=== PATIENT | male | born 1975 | race Caucasian/White ===

== ENCOUNTER 2017-11-09 05:10 | Emergency (ER) | payer OTHER ==
--- NOTE | 2017-11-09 06:22 | RADIOLOGY REPORT (SQ) ---
EXAM DESCRIPTION: HAND RIGHT 3 VIEWS COMPLETED DATE/TIME: 11/09/2017 5:54 am REASON FOR STUDY: injury . Would fell from roof and hit hand. COMPARISON: None. EXAM PARAMETERS: NUMBER OF VIEWS: Three views. TECHNIQUE: AP, lateral and oblique radiographic images acquired of the right hand. LIMITATIONS: None. FINDINGS: MINERALIZATION: Normal. BONES: No acute fracture or dislocation. SOFT TISSUES: Mild soft tissue swelling at the dorsum of the hand. No radiopaque foreign body. IMPRESSION: Mild soft tissue swelling at the dorsum of the hand. No radiographic evidence for acute fracture. TECHNICAL DOCUMENTATION: JOB ID: [id number] [employer]- All Rights Reserved
[2017-11-09] MEDS ORDERED: IBUPROFEN 800 MG TABLET PO ONE (06:47)
[2017-11-09] MEDS ORDERED: OXYCODONE-ACETAMINOPHEN 5-325 MG TABLET PO ONE (06:47)
--- NOTE | 2017-11-09 06:51 | ER Document Report ---
ED Hand/Wrist Injury - General Chief Complaint: Hand Injury Stated Complaint: HAND INJURY Time Seen by Provider: 11/09/17 06:39 Notes: The patient states that he had a board drop on his hand yesterday at work. Has been swelling all night. Denies any puncture of the skin. Hurts to move his wrist. Pain radiating up into his arm. Denies any fever, chills or sweats. Took some Percocet at about 1 AM but not getting better. TRAVEL OUTSIDE OF THE [place] IN LAST 30 DAYS: No - HPI Injury to: Hand, Wrist Onset: Yesterday Where: Home Quality of pain: Throbbing Context: Crush - Related Data Allergies/Adverse Reactions: morphine [Morphine] Allergy (Verified 05/05/11 03:14) Past Medical History - General Information source: Patient - Social History Smoking Status: Unknown if Ever Smoked Cigarette use (# per day): No Frequency of alcohol use: None Drug Abuse: None Lives with: Family Family History: Reviewed & Not Pertinent - Past Medical History Cardiac Medical History: Reports: None Pulmonary Medical History: Reports: None EENT Medical History: Reports: None Neurological Medical History: Reports: None Endocrine Medical History: Reports: None Renal/ Medical History: Reports: None Malignancy Medical History: Reports None GI Medical History: Reports: None Musculoskeltal Medical History: Reports None Skin Medical History: Reports None Review of Systems - Review of Systems Constitutional: No symptoms reported EENT: No symptoms reported Cardiovascular: No symptoms reported Gastrointestinal: No symptoms reported Musculoskeletal: See HPI, Other - Right hand pain and swelling Physical Exam - Vital signs Vitals: Temp Pulse Resp BP Pulse Ox 99.1 F 91 18 160/86 H 100 11/09/17 05:28 11/09/17 05:28 11/09/17 05:28 11/09/17 05:28 11/09/17 05:28 Interpretation: Normal - General General appearance: Alert In distress: Mild - Extremities General upper extremity: Tender, Edema, Other - Patient has a swollen dorsum of the right hand. No puncture andrade. There is no erythema. There is no lymphangitic streaking. Extremely tender to palpation on the dorsum of the right hand. Able to range of motion of the wrist but produces pain in the dorsum of the right hand. The compartments appear easily compressible. There is 2 point discrimination intact distally. Extensor tendons intact.. No: Normal ROM Course - Re-evaluation Re-evalutation: 11/09/17 06:53 Prescription monitoring program was accessed. No red flags. Will prescribe narcotics and give follow-up with Orth O. 11/09/17 07:06 X-rays unremarkable for fracture. Will place in splint. Pain medication. Patient advised to return for any signs of worsening pain, redness, streaking, pallor to the distal extremities or other concerns. Discussed with him warning signs with regards to compartment syndrome in the present setting of a crush injury. Patient verbalized understanding of these instructions and will be discharged in stable condition. - Vital Signs Vital signs: Temp Pulse Resp BP Pulse Ox 99.1 F 91 18 160/86 H 100 11/09/17 05:28 11/09/17 05:28 11/09/17 05:28 11/09/17 05:28 11/09/17 05:28 Discharge - Discharge Clinical Impression: Contusion, hand Qualifiers: Encounter type: initial encounter Laterality: right Qualified Code(s): S60.221A - Contusion of right hand, initial encounter Condition: Good Disposition: HOME, SELF-CARE Instructions: Contusion ([facility]) Additional Instructions: We are placing you in a splint at this time. There does not appear to be a fracture. More than likely this is a hand contusion. The splint may help with the swelling and the pain. Keep it elevated. Keep ice on an as needed. Follow -up with orthopedic surgery if symptoms are persisting after 7 days in the splint as repeat x-rays may be in order. Prescriptions: Hydrocodone/Acetaminophen [Tinnie 5-325 mg Tablet] 1 tab PO TID PRN 4 Days #12 tablet PRN Reason: Pain Scale Of 3 Ibuprofen [Motrin 600 Mg Tablet] 600 mg PO TID #15 tablet Forms: Return to Work Referrals: SWATHI SALGADO MD [ACTIVE STAFF] - Follow up in 1 week
[2017-11-09 07:42] VITALS: BP 159/94
== END 2017-11-09 07:42 | disposition home or self-care (01) ==
LOC: ER 05:10
PROC: 2W3CX1Z Immobilization of Right Lower Arm using Splint (ICD-10-PCS; principal; 2017-11-09)
DX: S60.221A Contusion of right hand, initial encounter (principal); W22.8XXA Striking against or struck by other objects, initial encounter; Z79.899 Other long term (current) drug therapy
CPT/HCPCS: 99283; 73130; 29125; L3908

== ENCOUNTER 2018-07-12 11:42 | Emergency (ER) | payer OTHER ==
[2018-07-12] MEDS ORDERED: OXYCODONE-ACETAMINOPHEN 5-325 MG TABLET PO ONE (12:43)
--- NOTE | 2018-07-12 12:45 | ER Document Report ---
ED Fall - General Chief Complaint: Fall Stated Complaint: FALL Time Seen by Provider: 07/12/18 12:06 Mode of Arrival: Ambulatory Information source: Patient Notes: 42-year-old male presents to ED for complaint of right leg ankle and knee pain as well as left arm shoulder and lower back pain. He states he also has left rib pain. He states he fell 14 feet from a ladder on 9[address] and was seen in [place] and told that he had a lot of bruising and swelling they were not able to help definitely if he had fractures or not. He states that he did not x -ray his leg his knee or his shoulder. He states that he did have some problems with his lower back foot and ankle but they were not able to see any definite fractures. 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 He states he has a history of multiple fractures as well as multiple fractures to his facial bones. He has had surgery to his left elbow. He is alert and oriented respirations regular and unlabored speaking in full sentences is able to walk and drive himself. TRAVEL OUTSIDE OF THE [place] IN LAST 30 DAYS: No - HPI Occurred: Other - 07/04/2018 Where: Outdoors Context: Fell from height - States he fell 14 feet on 926 Associated symptoms: None Location of injury/pain: Ankle, Back - Low back, Chest - Left ribs, Foot, Knee, Shoulder Quality of pain: Achy, Sharp Pain Level: 4 - Related data Allergies/Adverse Reactions: morphine [Morphine] Allergy (Verified 07/12/18 11:47) Past Medical History - General Information source: Patient - Social History Smoking Status: Former Smoker Chew tobacco use (# tins/day): Yes Frequency of alcohol use: None Drug Abuse: None Occupation: [employer] Family History: Reviewed & Not Pertinent Patient has suicidal ideation: No Patient has homicidal ideation: No - Past Medical History Cardiac Medical History: Reports: None Pulmonary Medical History: Reports: None EENT Medical History: Reports: None Endocrine Medical History: Reports: None Renal/ Medical History: Reports: None Malignancy Medical History: Reports None GI Medical History: Reports: None Musculoskeletal Medical History: Reports Hx Arthritis, Reports Hx Musculoskeletal Deformity, Reports Hx Musculoskeletal Trauma Skin Medical History: Reports None Psychiatric Medical History: Reports: Hx Anxiety, Hx Depression Traumatic Medical History: Reports: Hx Fractures - Multiple Infectious Medical History: Reports: None Past Surgical History: Reports: Hx Orthopedic Surgery - left elbow - Immunizations Immunizations up to date: Yes Review of Systems - Review of Systems Constitutional: No symptoms reported EENT: No symptoms reported Cardiovascular: No symptoms reported Respiratory: Other - Left rib pain Gastrointestinal: No symptoms reported Genitourinary: No symptoms reported Male Genitourinary: No symptoms reported Musculoskeletal: Back pain - Low back, Joint pain - Right leg ankle and knee left arm shoulder Skin: No symptoms reported Hematologic/Lymphatic: No symptoms reported Neurological/Psychological: No symptoms reported -: Yes All other systems reviewed and negative Physical Exam - Vital signs Vitals: Temp Pulse Resp BP Pulse Ox 97.1 F 83 22 H 137/89 H 94 07/12/18 12:01 07/12/18 12:01 07/12/18 12:01 07/12/18 12:01 07/12/18 12:01 Interpretation: Normal - General General appearance: Appears well, Alert - HEENT Head: Normocephalic, Atraumatic Eyes: Normal Pupils: PERRL - Respiratory Respiratory status: No respiratory distress Chest status: Nontender Breath sounds: Normal Chest palpation: Normal - Cardiovascular Rhythm: Regular Heart sounds: Normal auscultation Murmur: No - Abdominal Inspection: Normal Distension: No distension Bowel sounds: Normal Tenderness: Nontender Organomegaly: No organomegaly - Back Back: Normal, Tender. No: Deformity/step-off, CVA tenderness, Vertebra tenderness, Scars, Scoliosis, Wounds - Extremities General upper extremity: Normal inspection, Normal color, Normal ROM, Normal temperature General lower extremity: Normal color, Normal ROM, Normal temperature, Normal weight bearing. No: Josh's sign Shoulder: Tender, Limited ROM. No: Abrasion, Deformity - Due to pain, Dislocation, Ecchymosis, Instability, Laceration Knee: Tender, Pain with ROM, Patellar tendon intact, Tender joint line. No: Ecchymosis, Joint effusion, Laceration, Laxity with valgus stress, Laxity with varus stress, Popliteal fossa tender, Unable to bear weight Ankle: Tender, Edema, Other - Pain with range of motion. No: Abrasion, Deformity, Ecchymosis, Instability, Laceration, Limited ROM, Positive Iverson' s test, Unable to bear weight Foot: Tender, Edema, Metatarsal compress. pain, No evidence of FB - Neurological Neuro grossly intact: Yes Cognition: Normal Orientation: AAOx4 Nena Coma Scale Eye Opening: Spontaneous Nena Coma Scale Verbal: Oriented [place] Coma Scale Motor: Obeys Commands Nena Coma Scale Total: 15 Speech: Normal Motor strength normal: LUE, RUE, LLE, RLE Sensory: Normal - Psychological Associated symptoms: Normal affect, Normal mood - Skin Skin Temperature: Warm Skin Moisture: Dry Skin Color: Normal Course - Re-evaluation Re-evalutation: 07/12/18 20:32 All x-rays were negative. 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 He states he cannot get narcotics for his pain. He states he was given volume by a doctor when he first fell on 04 July. Patient was treated with 1 Ultram in the ED and instructed to follow -up with his primary doctor or his Workmen's Comp. doctor. All x-rays were negative for any acute injuries. And patient was discharged home with instructions for warm packs ice packs and range of motion. - Vital Signs Vital signs: Temp Pulse Resp BP Pulse Ox 97.2 F 78 20 147/96 H 94 07/12/18 14:31 07/12/18 14:31 07/12/18 14:31 07/12/18 14:31 07/12/18 14:31 - Diagnostic Test Radiology reviewed: Image reviewed, Reports reviewed Discharge - Discharge Clinical Impression: Pain in right ankle and joints of right foot, Pain of right knee and lower leg Fall Qualifiers: Encounter type: initial encounter Qualified Code(s): W19.XXXA - Unspecified fall, initial encounter Contusion of rib on left side Qualifiers: Encounter type: initial encounter Qualified Code(s): S20.212A - Contusion of left front wall of thorax, initial encounter Left shoulder pain Qualifiers: Chronicity: acute Qualified Code(s): M25.512 - Pain in left shoulder Low back pain Qualifiers: Chronicity: acute Back pain laterality: bilateral Sciatica presence: without sciatica Qualified Code(s): M54.5 - Low back pain Condition: Stable Disposition: HOME, SELF-CARE Instructions: Ankle Exercise Program ([facility]), Exercises for the Foot Muscles ([facility] ), Family Physicians / Practices, Knee Exercise Program ([facility]), Exercise Program for the Shoulder ([facility]), Stretching Exercises for the Back ([facility]) Additional Instructions: MUSCLE STRAIN: You have strained a muscle -- torn the fibers within the muscle. This often occurs with strenuous exertion, or during an injury that suddenly stretches the muscle. The seriousness of a strain varies. Some strains heal within days, others cause problems for months. X-rays cannot show a muscle strain. X-rays are taken only if symptoms suggest that a fracture could be present. The usual treatment of a muscle strain is rest and ice packs. Sometimes, a sling, splint, or crutches may be necessary to rest the muscle. The muscle can be used again once pain subsides. Severe strains require a special exercise and stretching program to prevent permanent stiffness and disability. Your doctor will advise you if this will be necessary. Call the doctor immediately if pain or swelling becomes severe, or if numbness or discoloration develop. CONTUSION: Your injury has resulted in a contusion -- a crushing of the deep tissues. No injury to important structures was detected during the physician's exam. Contusions vary in the amount of pain they cause, and in the length of time required for healing. Typically, the area will become bruised, and will remain painful to touch for two or three weeks. However, most patients are back to working and playing within a few days. After the initial period of rest and cold-packs, your symptoms (together with the doctor's recommendations) will determine how rapidly you can get back to full activity. Usually this means "do what feels okay, but don't do things that hurt." If re-examination was recommended, it's important to follow up as instructed. Call the doctor or return any time if pain increases, if swelling becomes severe, if you develop numbness or weakness in an injured extremity, or if any other alarming symptoms occur. Rib Contusion You have been diagnosed as having bruised ribs. It will usually take a few weeks for these injured ribs to heal. You should cough or take a deep breath at least every hour or two to prevent lung complications. You should not engage in any strenuous physical activity until released by your physician. The usual rule is "if it hurts, don' t do it." Return if you develop any of the following: (1) Fever or chills. (2) Persistent cough, coughing up blood, or shortness of breath. (3) Increasing pain. (4) Weakness, lightheadedness, or fainting. LOW BACK PAIN: Three out of every four people will have an episode of disabling back pain during their lifetime. Most commonly the pain is due to straining of the muscles and ligaments in the low back. Usual treatment includes: (1) Rest on a firm surface. Avoid lying on your stomach. (2) Ice pack the painful area. After a few days, gentle heat may be used intermittently to relax the area, or ice packs can be continued. (3) Medication may be needed -- muscle relaxers and antiinflammatory medicines are commonly used. (4) As the back improves, exercises are prescribed to strengthen the back and abdominal muscles. Your doctor will advise you on the proper care for your back at each stage in your recovery. You may be better in a few days -- or healing may take several weeks. If new symptoms of a "herniated disc" (radiation of pain, numbness, or tingling down the back of the leg or weakness in the leg) occur, you should be re-examined. Further testing may be necessary. USE OF TYLENOL (ACETAMINOPHEN): Acetaminophen may be taken for pain relief or fever control. It's much safer than aspirin, offering a wider range of "safe" dosages. It is safe during . Some brand names are Tylenol, Panadol, Datril, Anacin 3, Tempra, and Liquiprin. Acetaminophen can be repeated every four hours. The following are maximum recommended dosages: WEIGHT Dose Drops Elixir Chewable( 80mg) (LBS.) drprs=droppers tsp=teaspoon 6 40 mg 0.4 ml (1/2) 6-11 80 mg 0.8 ml (full) tsp 1 tab 12-16 120 mg 1 1/2 drprs 3/4 tsp 1 1/2 tabs 17-23 160 mg 2 drprs 1 tsp 2 tabs 24-30 240 mg 3 drprs 1 1/2 tsp 3 tabs 30-35 320 mg 2 tsp 4 tabs 36-41 360 mg 2 1/4 tsp 4 1/2 tabs 42-47 400 mg 2 1/2 tsp 5 tabs 48-53 480 mg 3 tsp 6 tabs 54-59 520 mg 3 1/4 tsp 6 1/2 tabs 60-64 560 mg 3 1/2 tsp 7 tabs 65-70 600 mg 3 3/4 tsp 7 1/2 tabs 71-76 640 mg 4 tsp 8 tabs 77-82 720 mg 4 1/2 tsp 9 tabs 83-88 800 mg 5 tsp 10 tabs >89 pounds or adults 650 mg to 900 mg Acetaminophen can be repeated every four hours. Maximum dose not to exceed 4000 mg a day. These maximum recommended dosages are slightly higher than the dosages written on the product container, but these dosages are very safe and below the toxic dosage for acetaminophen. ICE & ELEVATION: Apply ice packs frequently against the painful area. Many different schedules are recommended, such as "20 minutes on, 20 minutes off" or "one hour ice, two hours rest." If you need to work, you may need to go longer between ice treatments. You should plan to have the area ice packed AT LEAST one- fourth of the time. The ice should be applied over the wrap, tape, or splint, or over a layer of cloth -- not directly against the skin. Some ice bags have a built-in cloth and can be put directly on the skin. Your injured part should be elevated as much as possible over the next 48 hours. Try to keep the injury above the level of the heart. Avoid use of the injured area. Elevation and rest will decrease the swelling. USE OF [id number]-NLTXALF IBUPROFEN: Ibuprofen (Advil, Nuprin, Medipren, Motrin IB) is a medication for fever and pain control. In addition, it has anti- inflammatory effects which may be beneficial, especially in the treatment of injuries. It's best to take ibuprofen with food. Persons with ulcer disease or allergy to aspirin should notify their physician of this before taking ibuprofen. Ibuprofen can be given every four to six hours, for a total of four doses daily. Age Pain or fever dose Antiinflammatory dose 6-8 yr 200 mg (1 tab) 200 mg (1 tab) 9-11 yr 200 mg (1 tab) 200-400 mg (1-2 tab) 11-14 yr 200-400 mg (1-2 tab) 400 mg (2 tab) 15-adult 400 mg (2 tab) 600 mg (3 tab) ICE PACKS: Apply ice packs frequently against the painful area. Many different schedules are recommended, such as "20 minutes on, 20 minutes off" or "one hour ice, two hours rest." If you need to work, you may need to go longer between ice treatments. You should plan to have the area ice packed AT LEAST one fourth of the time. The ice should be applied over the wrap, tape, or splint, or over a layer of cloth -- not directly against the skin. Some ice bags have a built-in cloth and can be put directly on the skin. WARM PACKS: After approximately two days, apply gentle heat (such as a heating pad or hot water bottle) for about 20 to 30 minutes about every two hours -- at least four times daily. Warmth and elevation will help you make a more rapid recovery , and will ease the pain considerably. Do not use HOT heat, and never apply heat for longer than 30 minutes. The continuous heat can invisibly damage skin and muscles -- even when no burn is seen on the surface. Damaged muscles can make you MORE sore. FOLLOW-UP CARE: If you have been referred to a physician for follow-up care, call the physician s office for an appointment as you were instructed or within the next two days. If you experience worsening or a significant change in your symptoms, notify the physician immediately or return to the Emergency Department at any time for re-evaluation. Forms: Elevated Blood Pressure, Return to Work
--- NOTE | 2018-07-12 13:39 | RADIOLOGY REPORT (SQ) ---
EXAM DESCRIPTION: FOOT RIGHT COMPLETE; KNEE RIGHT 4 VIEWS; SHOULDER LEFT 2 OR MORE VIEWS; ANKLE RIGH T COMPLETE COMPLETED DATE/TIME: 07/12/2018 1:28 pm REASON FOR STUDY: fall 14 feet 07/04 COMPARISON: None. FINDINGS: Three views left shoulder: Total 5 images obtained. No fracture or subluxation or disloc ation. AC joint intact. Clear left lung. Three views right ankle: Lateral soft tissue swelling. No large effusion. No fracture. No radiopa que foreign body. Three views right foot: No fracture or bone lesion. Great toe MP joint degenerative arthropathy. Four views right knee: Normal. TECHNICAL DOCUMENTATION: JOB ID: [id number] Reading location - IP/workstation name: [email or web address]
--- NOTE | 2018-07-12 13:39 | RADIOLOGY REPORT (SQ) ---
EXAM DESCRIPTION: FOOT RIGHT COMPLETE; KNEE RIGHT 4 VIEWS; SHOULDER LEFT 2 OR MORE VIEWS; ANKLE RIGH T COMPLETE COMPLETED DATE/TIME: 07/12/2018 1:28 pm REASON FOR STUDY: fall 14 feet 07/04 COMPARISON: None. FINDINGS: Three views left shoulder: Total 5 images obtained. No fracture or subluxation or disloc ation. AC joint intact. Clear left lung. Three views right ankle: Lateral soft tissue swelling. No large effusion. No fracture. No radiopa que foreign body. Three views right foot: No fracture or bone lesion. Great toe MP joint degenerative arthropathy. Four views right knee: Normal. TECHNICAL DOCUMENTATION: JOB ID: [id number] Reading location - IP/workstation name: [email or web address]
--- NOTE | 2018-07-12 13:39 | RADIOLOGY REPORT (SQ) ---
EXAM DESCRIPTION: FOOT RIGHT COMPLETE; KNEE RIGHT 4 VIEWS; SHOULDER LEFT 2 OR MORE VIEWS; ANKLE RIGH T COMPLETE COMPLETED DATE/TIME: 07/12/2018 1:28 pm REASON FOR STUDY: fall 14 feet 07/04 COMPARISON: None. FINDINGS: Three views left shoulder: Total 5 images obtained. No fracture or subluxation or disloc ation. AC joint intact. Clear left lung. Three views right ankle: Lateral soft tissue swelling. No large effusion. No fracture. No radiopa que foreign body. Three views right foot: No fracture or bone lesion. Great toe MP joint degenerative arthropathy. Four views right knee: Normal. TECHNICAL DOCUMENTATION: JOB ID: [id number] Reading location - IP/workstation name: [email or web address]
--- NOTE | 2018-07-12 13:39 | RADIOLOGY REPORT (SQ) ---
EXAM DESCRIPTION: FOOT RIGHT COMPLETE; KNEE RIGHT 4 VIEWS; SHOULDER LEFT 2 OR MORE VIEWS; ANKLE RIGH T COMPLETE COMPLETED DATE/TIME: 07/12/2018 1:28 pm REASON FOR STUDY: fall 14 feet 07/04 COMPARISON: None. FINDINGS: Three views left shoulder: Total 5 images obtained. No fracture or subluxation or disloc ation. AC joint intact. Clear left lung. Three views right ankle: Lateral soft tissue swelling. No large effusion. No fracture. No radiopa que foreign body. Three views right foot: No fracture or bone lesion. Great toe MP joint degenerative arthropathy. Four views right knee: Normal. TECHNICAL DOCUMENTATION: JOB ID: [id number] Reading location - IP/workstation name: [email or web address]
--- NOTE | 2018-07-12 13:42 | RADIOLOGY REPORT (SQ) ---
EXAM DESCRIPTION: L SPINE WHOLE COMPLETED DATE/TIME: 07/12/2018 1:28 pm REASON FOR STUDY: fall pain COMPARISON: None. NUMBER OF VIEWS: Five views including obliques. TECHNIQUE: AP, lateral, oblique, and sacral radiographic images acquired of the lumbar spine. LIMITATIONS: None. FINDINGS: MINERALIZATION: Normal. SEGMENTATION: Normal. No transitional anatomy. ALIGNMENT: Normal. VERTEBRAE: Maintained height. No fracture or worrisome bone lesion. DISCS: Very mild disc space narrowing at several levels. No significant osteophytes. POSTERIOR ELEMENTS: Pedicles and facets are intact. No pars defect or posterior arch defects. HARDWARE: None in the spine. PARASPINAL SOFT TISSUES: Normal. PELVIS: Intact as visualized. No fractures or worrisome bone lesions. SI joints intact. OTHER: No other significant finding. IMPRESSION: Minimal spondylosis. No acute abnormality. No worrisome malalignment or fracture evide nt. TECHNICAL DOCUMENTATION: JOB ID: [id number] [employer]- All Rights Reserved Reading location - IP/workstation name: [email or web address]
--- NOTE | 2018-07-12 14:17 | RADIOLOGY REPORT (SQ) ---
EXAM DESCRIPTION: RIBS LEFT W/PA CHEST COMPLETED DATE/TIME: 07/12/2018 1:28 pm REASON FOR STUDY: fall 14 feet 07/04 continued left chest pain COMPARISON: None. TECHNIQUE: Frontal view of the chest and additional views of the left ribs acquired. NUMBER OF VIEWS: PA chest, left rib detail four views LIMITATIONS: None. FINDINGS: FRONTAL CXR: No pneumothorax. No pleural effusion. No atelectasis or infiltrates. Cardi ac silhouette size, yovanny unremarkable. RIBS: No displaced rib fractures. No lytic or blastic bony lesions. OTHER: No other significant finding. IMPRESSION: NO PNEUMOTHORAX. NO DISPLACED RIB FRACTURES. COMMENT: SITE OF TRAUMA/COMPLAINT MARKED/STAMP COMPLETED: No TECHNICAL DOCUMENTATION: JOB ID: [id number] [employer]- All Rights Reserved Reading location - IP/workstation name: [email or web address]
[2018-07-12] MEDS ORDERED: TRAMADOL HCL 50 MG TABLET PO ONE (14:25)
[2018-07-12 14:37] VITALS: BP 147/96
== END 2018-07-12 14:38 | disposition home or self-care (01) ==
LOC: ER 11:42
DX: S20.212A Contusion of left front wall of thorax, initial encounter (principal); M25.571 Pain in right ankle and joints of right foot; M25.561 Pain in right knee; M25.512 Pain in left shoulder; M54.5 Low back pain; W11.XXXA Fall on and from ladder, initial encounter; Z88.6 Allergy status to analgesic agent; Y99.0 Civilian activity done for income or pay
CPT/HCPCS: 72110; 99283